=== PATIENT | female | born 1985 | race Caucasian/White ===

== ENCOUNTER 2021-01-19 17:05 | Emergency (ER) | payer OTHER ==
[2021-01-19 18:08] LABS: RED BLOOD COUNT 4.5 M/UL (4.00-5.10); WHITE BLOOD COUNT 7.5 K/UL (4.5-11.0)
[2021-01-19 18:31] LABS: BUN/CREATININE RATIO 11 (0-10)
[2021-01-19] MEDS ORDERED: TORADOL 10 MG T10 MG PO (21:07)
[2021-01-19] MEDS ORDERED: FLOMAX 0.4 MG0.4 MG PO (21:07)
[2021-01-19] MEDS ORDERED: ONDANSETRON ODT4 MG SL (21:07)
== END 2021-01-19 21:35 | disposition home or self-care (01) ==
LOC: ER1 17:05
PROVIDERS: Physician Assistant
DX: R10.9 Unspecified abdominal pain (principal); Z87.442 Personal history of urinary calculi; Z90.49 Acquired absence of other specified parts of digestive tract; Z90.710 Acquired absence of both cervix and uterus; Z90.89 Acquired absence of other organs; Z88.0 Allergy status to penicillin; Z88.8 Allergy status to other drugs, medicaments and biological substances
CPT/HCPCS: 74018; 80053; 81001; 85025; 96374; 96375; 99284; J1170; J1885; J2270; J2405